=== PATIENT | female | born 1945 | race Caucasian/White ===

== ENCOUNTER → 2017-04-06 | Outpatient (REF) ==
[~2017-04-06] MED LIST: RT ADVAIR 228 DISKUS IH; ZOCOR 40MG40 MG PO
== END ==
LOC: ZLAB.WCH 14:19
DX: Z01.89 Encounter for other specified special examinations (principal)

== ENCOUNTER → 2018-04-19 | Outpatient (CLI) | payer MEDICARE, BC ==
[~2018-04-19] MED LIST changes: +D3-5050000 IU PO; +VOLTAREN 75 DR75 MG PO
== END ==
LOC: COL.RAD 09:04
DX: M89.9 Disorder of bone, unspecified (principal); R91.8 Other nonspecific abnormal finding of lung field
CPT/HCPCS: A9503

== ENCOUNTER → 2018-09-03 | Outpatient (CLI) | payer MEDICARE, BC ==
[~2018-09-03] MED LIST changes: +DECADRON 4MG TAB4 MG PO; +FOLIC ACID 11 MG/TA1 PO
== END ==
LOC: COL.LAB 11:03
DX: C34.32 Malignant neoplasm of lower lobe, left bronchus or lung (principal)

== ENCOUNTER 2018-09-04 12:54 | Outpatient (RCR) | payer MEDICARE, BC ==
[2018-09-04] VITALS (10 sets, daily range): BP systolic 110–137; BP diastolic 48–75; PULSE 66–82; TEMP 97.1–98.9
[~2018-09-04 12:54] MED LIST changes: -DECADRON 4MG TAB4 MG PO; -FOLIC ACID 11 MG/TA1 PO
[2018-09-04] MEDS ORDERED: FOLIC ACID 11 MG/TA1 PO (13:42)
[2018-09-04] MEDS ORDERED: DECADRON 4MG TAB4 MG PO (13:44)
== END 2018-09-04 18:20 | disposition home or self-care (01) ==
LOC: EUO 12:54
DX: C34.32 Malignant neoplasm of lower lobe, left bronchus or lung (principal); C79.51 Secondary malignant neoplasm of bone
CPT/HCPCS: J1644; J7050; P9040

== ENCOUNTER → 2018-12-18 | Outpatient (CLI) | payer MEDICARE, BC ==
[~2018-12-18] MED LIST changes: +DECADRON 4MG TAB4 MG PO; +FOLIC ACID 11 MG/TA1 PO
== END ==
LOC: COL.RAD 08:23
DX: C34.32 Malignant neoplasm of lower lobe, left bronchus or lung (principal)
CPT/HCPCS: Q9967

== ENCOUNTER 2019-11-22 16:14 | Outpatient (RCR) | payer MEDICARE, BC ==
[2019-11-22] VITALS (10 sets, daily range): BP systolic 96–117; BP diastolic 54–76; PULSE 63–103; TEMP 97.8–98.2
[2019-11-22] MEDS ORDERED: ROXICODONE 55 MG/TAB PO (17:14)
[2019-11-22] MEDS ORDERED: TESSALON P100 MG/CAP PO (17:16)
--- NOTE | 2019-11-22 22:50 | NUR ---
PT YUDI CATH DCd AFTER 10ML OF NS AND 5ML OF HEPARIN FLUSHED IN IT. PT TOLERATED WELL. PT ESCORTED OUT VIA WC AND WENT HOME WITH GRANDDAUGHTER, LUIS BY PRIVATE VEHICLE.
== END 2019-11-22 22:50 | disposition home or self-care (01) ==
LOC: EUO 16:14
DX: C34.32 Malignant neoplasm of lower lobe, left bronchus or lung (principal)
CPT/HCPCS: J7050; P9016

== ENCOUNTER → 2019-12-19 | Outpatient (CLI) | payer MEDICARE, BC ==
[~2019-12-19] MED LIST changes: +ROXICODONE 55 MG/TAB PO; +TESSALON P100 MG/CAP PO
== END ==
LOC: COL.RAD 12-17 11:00
DX: C34.32 Malignant neoplasm of lower lobe, left bronchus or lung (principal); J90 Pleural effusion, not elsewhere classified; J18.1 Lobar pneumonia, unspecified organism; R91.8 Other nonspecific abnormal finding of lung field
CPT/HCPCS: Q9967

== ENCOUNTER → 2019-12-27 | Outpatient (CLI) | payer MEDICARE, BC ==
[~2019-12-27] VITALS: Ht 157.5 cm; Wt 48.2 kg
[2019-12-27 13:17] VITALS: BP 148/80; PULSE 116
[2019-12-27 14:45] VITALS: BP 121/68; PULSE 107
--- NOTE | 2019-12-27 14:45 | NUR ---
Dr Greenwood removed 800 mls of yellow drainage from left lung. Bandaid to left side of back clean dry and intact.
[2019-12-27 15:27] LABS: PLEURAL FLUID RBC 0 /mm3 (0-0); PLEURAL FLUID WBC 158 /mm3
[2019-12-27 15:39] LABS: PLEURAL FLUID APPEARANCE CLEAR; PLEURAL FLUID COLOR YELLOW
[2019-12-27 15:51] LABS: TOTAL PROTEIN,PLEURAL FLUID 4.3 gm/dL
== END ==
LOC: COL.RAD 13:01
PROVIDERS: Internal Medicine
DX: C34.32 Malignant neoplasm of lower lobe, left bronchus or lung (principal); J90 Pleural effusion, not elsewhere classified
CPT/HCPCS: 19804

== ENCOUNTER 2020-01-28 09:26 | Observation (INO) | payer MEDICARE, BC ==
[~2020-01-28] VITALS: Ht 157.5 cm; Wt 49.1 kg
[2020-01-28 09:54] LABS: BASO # 0.1 (0.0-0.2); BASO % 0.8 % (0.0-2.0); EOS % 0.2 % (0-4.0); GRAN # 6.4 (1.4-6.5); HEMATOCRIT 38.3 % (37.0-47.0); HEMOGLOBIN 12.2 g/dl (12.5-16.0); LYMPH # 0.9 (1.2-3.4); LYMPH % 10.6 % (20.0-51.0); MEAN CELL VOLUME 104 fl (80.0-100.0); MEAN CORPUSCULAR HEMOGLOBIN 33 pg (27.0-31.0); MEAN CORPUSCULAR HGB CONC 32 g/dl (33.0-37.0); MONO % 11.9 % (1.7-9.3); PLATELET COUNT 373 K/mm3 (130-400); RED BLOOD COUNT 3.67 M/mm3 (4.10-5.30); REDCELL DISTRIBUTION WIDTH-CV 18.1 % (11.5-14.5)
[2020-01-28 10:44] LABS: INR 1.1 (0.8-3.0); PROTHROMBIN TIME 11.8 SECONDS (9.7-12.8)
[2020-01-28 10:47] LABS: COLLECTION METHOD IN
[2020-01-28 10:55] LABS: ALBUMIN 3.2 gm/dL (3.5-5.0); BILIRUBIN,TOTAL 0.5 mg/dL (0.0-1.0); CALCIUM 8.7 mg/dL (8.4-10.2); CREATININE, serum 0.97 (0.52-1.25); POTASSIUM 4.7 mmol/L (3.4-5.0); TOTAL PROTEIN 6.8 gm/dL (6.4-8.2)
[2020-01-28 11:01] LABS: MUCOUS Present /lpf; PH 6 (5-8); SQUAMOUS EPITHELIAL None Seen /hpf; URINE APPEARANCE Clear; URINE BACTERIA None Seen /hpf; URINE BILIRUBIN Negative (NEGATIVE); URINE BLOOD Negative (NEGATIVE); URINE COLOR Yellow; URINE GLUCOSE Negative (NEGATIVE); URINE KETONE Negative (NEGATIVE); URINE LEUKOCYTE ESTERASE Negative (NEGATIVE); URINE NITRATE Negative (NEGATIVE); URINE PROTEIN(semi-quant) Negative (NEGATIVE); URINE RBC 0-2 /hpf; URINE UROBILINOGEN Negative (NEGATIVE)
--- NOTE | 2020-01-28 12:50 | NUR ---
arrived on unit per WC, assisted into bed, marshall cath patent draining clear yellow urine, provide call light
[2020-01-28 13:02] VITALS: BP 145/72; PULSE 110; TEMP 98.6
--- NOTE | 2020-01-28 13:54 | NUR ---
awake resting in bed, explained she is NPO and verbalizes understanding, is alert and oriented, although she at first thought she was in [place], then remembered she was in [place],
[2020-01-28] MEDS ORDERED: MAGIC MOUTH PO (14:34)
--- NOTE | 2020-01-28 14:53 | NUR ---
I met briefly with patient today after she arrived in [facility]. She has some confusion about where she is-[place] vs [place]. She has a son that lives in [place] with his and Dr Quezada is her physician. She lives in [place] with her son Ty. She reports having a son who and that she recently lost her but does not remember when, "recently". She has been getting a 2nd line chemotherapy: TAXOTERE AND CYRAMZA for her lung cancer with her last dose being 01/06/2020 per office records. Strength in her arms and legs appears good but she does reports that her memory has been affected. She also has a daughter who lives in [place] but had cancelled a trip here recently pt believes. Pt has NSCLC stage Bong with mets to T8 and multiple postive lymph nodes notes. She has pleural effusions that it appears have been drained monthly for the last few months and probably is in need of another thoracentesis. She doesn't remember what made her realize that things were not right this morning--she thinks maybe her son Ty would know. Ty's phone number is [phone] and her granddaughter Radha can be reached at [phone]. Pt denies further needs at this time and I will plan on meeting with her again tomorrow.
--- NOTE | 2020-01-28 15:00 | NUR ---
is very sleepy now, speech is slurred and she is hard to understand, when instructed to squeeze with upper extremities was unablt to squeeze right side or lift right arm, is able to move right leg, does have right sided facial drooping now, tries to answer questions but is forgetful and then cannot answer questions, this is different than at 1400, Citlaly CHANG notified of the change and that she failed nursing dysphagia screen, speech therapy notified and will eval on Wed
[2020-01-28] MEDS ORDERED: RT ADVAIR 228 DISKUS IH (15:38)
[2020-01-28] MEDS ORDERED: LIORESAL 1010 MG/TAB PO (15:40)
[2020-01-28] MEDS ORDERED: D3-5050000 IU PO (15:40)
[2020-01-28] MEDS ORDERED: ZOCOR 40MG40 MG PO (15:41)
[2020-01-28] MEDS ORDERED: FLONASE NASAL S16 GM NS (15:41)
[2020-01-28 16:01] VITALS: BP 126/68; PULSE 105; TEMP 98.5
--- NOTE | 2020-01-28 16:02 | NUR ---
I spoke with son Ty by phone earlier about his mother's code status and that fact she does not have a DPOA-HC or Living Will. He is requesting that we keep her comfortable because he believes that she is dying. He requested that family be allowed to visit her. I explained that only one designated family member could visit with prior authorization and that I would begin working on that and would let him know if it was approved. I spoke with Citlaly CHANG and with Leona Thurston RN who both supported and authorized a single visitor. Dr White and Citlaly will try to meet with visitor patrice if they can get here by 173. When I called Ty back, I got his daughter Radha who reports that he is very upset and has been drinking. Granddaughter Radha has Ty's phone and did report that she would be able to come and that was what Ty had told her to do. I notified Dr White/Citlaly, primary nurse Vani Burton RN and the ER entrance that Radha will be coming in for Svetlana Ramsay today and entered her name on the approved visitor list at desk.
--- NOTE | 2020-01-28 16:45 | NUR ---
This patient was admitted to the medical floor today. A pallative care consult was ordered. Linette Galindo, Pallative care nurse informed ZAIDA that the patient has declined and does not have a DPOA-HC. The patient has three children, Ty, Pérez and Glory. Linette reports she has spoken to the patient's granddaughter regarding the patient's condition and to locate family. The granddaughter reports that Ty #[phone] lives with the patient and is currently intoxicated. She states that she has his phone at this time. The patient's granddaughter plans to come up to the hospital this afternoon to see the patient and to speak to the doctors about the patient's current condition and prognosis. ZAIDA was able to locate and contact the patient's [id number]-djt, Lennie (ph#[phone]). Lennie reports that she will notify her , Pérez, of his mother's hospitalization and that Ty should have Glory's phone number in his phone. Lennie reports that she will notify family of the patient's hospitalization. ZAIDA to continue to follow.
--- NOTE | 2020-01-28 16:48 | NUR ---
Pt does not have Living will or DPOA-HC per family and neither of her physicians has any record of this. Son Ty has stated he would want his mother to be a DNR and placed on comfort care but without advanced directives, we must make every attempt to contact her other two living children and get their support of this or another goal of care. I have advised Citlaly and she will talk with Dr White. Granddaughter is not here yet. Vani QUESADA has been made aware of this issue as well.tail worker Missy CASTRO has been a big help in finding the Tiburcio son's contact information and we will continue to work toward resolution. Pt status at this time hashas continued to decline per Vani QUESADA.
--- NOTE | 2020-01-28 17:21 | NUR ---
vee graham and in to see patient with Dr White, and Dr Yanez also in seeing patinet, Dr White notified of her blood sugar
--- NOTE | 2020-01-28 18:50 | NUR ---
bedside shift report given to DIPAK Poe
--- NOTE | 2020-01-28 20:12 | NUR ---
Assessment completed. Pt resting in bed, alert and oriented at this time. Able to follow commands and answer questions appropriately. Lifts and holds all extremities. Right hand audio specialist moderate strength, left hand audio specialist strongs. Pupils equal and reactive. Pt denies pain or other needs at this time. Pacheco catheter in place, urine pale yellow and clear. IV to left AC intact with NS running at 75 ml/hr. INT to right forearm intact, flushes easily. Will continue hourly stroke scales and neuro checks every 2 hours.
[2020-01-28 23:33] VITALS: BP 129/67; PULSE 104; TEMP 97.5
[2020-01-29 04:17] VITALS: BP 137/69; PULSE 106; TEMP 97.6
--- NOTE | 2020-01-29 06:23 | NUR ---
Pt has rested in bed throughout shift without complaint. Hourly stroke scales done and neuro checks done every 2 hours. Pt has been alert or easily arousable. At times, pt was oriented x4, sometimes disoriented to place, time, or situation. Blood glucose was 59 at 0600. D50W 12.5 grams administered, continuous fluids switched to D5NS at 75 ml/hr as ordered.
[2020-01-29 07:07] LABS: BASO # 0.1 (0.0-0.2); BASO % 0.9 % (0.0-2.0); EOS % 0.5 % (0-4.0); GRAN # 6.3 (1.4-6.5); HEMOGLOBIN 10.8 g/dl (12.5-16.0); LYMPH # 0.7 (1.2-3.4); LYMPH % 8.9 % (20.0-51.0); MEAN CELL VOLUME 106 fl (80.0-100.0); MEAN CORPUSCULAR HEMOGLOBIN 33 pg (27.0-31.0); MEAN CORPUSCULAR HGB CONC 31 g/dl (33.0-37.0); MEAN PLATELET VOLUME 9.4 fl (7.4-10.4); MONO # 0.6 (0.1-0.6); MONO % 7.9 % (1.7-9.3); PLATELET COUNT 406 K/mm3 (130-400); RED BLOOD COUNT 3.26 M/mm3 (4.10-5.30)
[2020-01-29 07:10] LABS: HEMATOCRIT 34.7 % (37.0-47.0)
[2020-01-29 07:13] LABS: CALCIUM 8.8 mg/dL (8.4-10.2); CHOLESTEROL RISK RATIO 4.9; CREATININE, serum 0.9 (0.52-1.25)
[2020-01-29 07:18] VITALS: BP 141/67; PULSE 107; TEMP 97.3
--- NOTE | 2020-01-29 08:05 | NUR ---
Assessment complete. Pt resting in bed, alert and oriented to self and year. Right lower ext slightly weaker than left when raising off bed and pt reports it is harder to lift the right leg. Hand human performance technologist equal bilat. O2 at 3 L/min via NC. Pt denies pain at this time. IVF's infusing per orders through left AC site without s/s of complications. Saline lock IV to right forearm without s/s of complications. Pt requesting water, reminded of not being able to have anything by mouth until seen by speech therapy. No further needs reported. Call light in reach.
--- NOTE | 2020-01-29 10:00 | NUR ---
Initial visit; Patient thanked College Tutor for stopping though declined spiritual care at this time.
--- NOTE | 2020-01-29 10:44 | NUR ---
I have spoken with Ty and Pérez Ramsay and Glory all by phone and all three children have verbalized desire for their mother to be kept comfortable and that her code status be DNR. Hospice care vs [facility] private pay support in the home were presented and family will now discuss what their wishes would be. Ty does not feel comfortable providing personal care for his mother and her needs at this point will be increased. Pérez # [phone] and Glory is in [place] # [phone]. Gaby HEADLEY was present for call with Ty Ramsay as well.
[2020-01-29 11:37] VITALS: BP 127/66; PULSE 110; TEMP 97.7
--- NOTE | 2020-01-29 11:59 | NUR ---
Gaby HEADLEY and I met with Svetlana to talk about discharge plans. Pt is aware that her family has requested a focus on comfort for her care and she is supportive of a DNR status. We did begin to discuss going to [facility] for car at discharge as family is concerned that personal care will be very difficult for Ty to provide. Pt is aware that going on hospice will mean that she will not have anymore chemotherapy. She verbalized agreement about going to hospice house but then asked "When can I go home?". Going home may be an option for her care in the future if she is able to regain more function. We are not sure what she may regain and what skills are not going to return. Pt was accepting of this.
--- NOTE | 2020-01-29 15:56 | NUR ---
Pt asked me earlier today where her rings were. There is no record of them being worn by here at time of admission. I did speak to her son Ty who reports that he doubts she was wearing them as she has lost a lot of weight and he didn't think that they would stay on any more. Pt seemed reassured that we had spoken with her son and reports she would find them later on when she gets home or Ty could look for them.
--- NOTE | 2020-01-29 16:30 | NUR ---
Patient's children can be reached at Ty (ph#[phone]), Pérez (ph#[phone]), and Glory (ph#[phone]). ZAIDA and Linette, Palliative RN contacted patient's son, Ty to discuss goals of care and discharge planning. Ty advised that he cannot care for patient at home at this time. ZAIDA reviewed options including [facility] and Hospice at [facility]. Ty would like to speak with his siblings about this. Ty called ZAIDA back and states their preference would be [facility] as they would be able to visit and patient's dog could visit. ZAIDA and Linette met with patient to discuss discharge planning. Patient is agreeable with discharge to [facility] but hopes that one day she can return home. ZAIDA contacted [place] at [facility] and faxed referral. [place] followed up with ZAIDA and advised that she spoke with Ty who has some concerns about affording room and board costs. Georgia advised they can do a sliding fee scale but that patient's family will be collaborating about finances. ZAIDA requested COVID test to be ordered. ZAIDA will continue to follow.
[2020-01-29 16:38] VITALS: BP 125/65; PULSE 105; TEMP 98.5
[2020-01-29 18:10] LABS: FOLATE (FOLIC ACID) 17.6 ng/mL (7.0-31.4)
--- NOTE | 2020-01-29 19:11 | NUR ---
Report received from DIPAK Hahn. Pt sitting up in bed eating dinner at this time. Denies needs, will continue to monitor.
--- NOTE | 2020-01-29 19:34 | NUR ---
Pt resting in bed, just finished eating dinner. Nasal cannula on delivering O2 at 3 L/min. Pt oriented to person, place, and situation, disoriented to time. Hand spice room worker equal, moderate muscle strength. Denies pain. No other abnormal findings noted. Will continue to monitor.
[2020-01-29 19:36] VITALS: BP 121/61; PULSE 114; TEMP 98.2
[2020-01-30 00:31] VITALS: BP 128/72; PULSE 98; TEMP 98.3
[2020-01-30 04:51] VITALS: BP 136/62; PULSE 96; TEMP 98.1
--- NOTE | 2020-01-30 05:59 | NUR ---
Pt sleeping in bed throughout shift. Occasionally attempts to get out of bed stating she needs to go home or calls out for family members. Has been easily redirected and lays back down to sleep.
--- NOTE | 2020-01-30 09:30 | NUR ---
I recieved call fron daughter Glory this morning asking about her mother and also reporting support for her going to the [facility]. I will call her back later this morning with an update and to let her talk with her mother. I also spoke with Radha, granddaughter, who reports that her father had trouble understanding the hospice house cost and sliding scale costs but that once she had talked with hospice and then her father, that he was very much in favor of Svetlana going to the hospice house. They are aware that covid testing is being done and that transfer would be dependent on that result.
--- NOTE | 2020-01-30 10:20 | NUR ---
Rounding with Dr. White and team-tried to reach son Ty and no one answered. Called daughter, Glory, and included her in discussions with pt. Reviewed pt status, Hospice plans, Covid 19 continues to be pended. When Covid is negative pt will be discharged to Hospice. Answered all questions of daughter/pt.
[2020-01-30] MEDS ORDERED: TYLENOL 325MG325 MG PO (10:27)
[2020-01-30] MEDS ORDERED: ATROPINE 2 ML2 ML SL (10:28)
[2020-01-30] MEDS ORDERED: SYSTANE 0.3-0.1 EACH OP (10:29)
[2020-01-30] MEDS ORDERED: ZOFRAN 4MG T4 MG/TAB PO (10:30)
[2020-01-30] MEDS ORDERED: MELATIN 3 MG-11 TAB PO (10:31)
[2020-01-30] MEDS ORDERED: ROXANOL 20MG20 MG/ML SL (10:31)
[2020-01-30] MEDS ORDERED: ATIVAN 1MG T1 MG/TAB PO (10:31)
--- NOTE | 2020-01-30 11:01 | NUR ---
Pt assessment completed and charted. Pt on comfort cares, PRN VS monitoring. Pt denies pain, doesn't appear to be in distress. Pt on 4L NC, breathing even and unlabored, occasional LEGGETT. BS activeX4. Heart RRR. Pulses strong bilaterally. Pt denies chest pain, dizziness, N/V/D. NO further needs expressed. This nurse and Linette Galindo talked w/ granddaughter this morning, updated on visitor policy.
[2020-01-30 12:00] VITALS: BP 133/66; PULSE 100; TEMP 97.5
--- NOTE | 2020-01-30 16:24 | NUR ---
Patient's COVID test still pending. SW contacted patient's son, Ty who reports after talking with his daughter, Radha they are all in agreement with discharge to [facility] and will be able to make financial arrangements for room and board. ZAIDA collaborated with DIPAK Sue who spoke with Radha, who confirms this. ZAIDA spoke with Doni at [facility] who reports they already have one admission tomorrow, but when patient's results get back they will do their best to admit her. SW will continue to follow.
[2020-01-30 19:16] VITALS: BP 136/67; PULSE 105; TEMP 97.9
--- NOTE | 2020-01-30 20:00 | NUR ---
PT IN BED WITH HOB ELEVATED AT 30 DEGREE ANGLE. PT ALERT AND HAS O2 ON. NO C/O PAIN OR DISCOMFORT. PT DOES TRY TO GET UP WITHOUT ASKING FOR ASSISTANCE. PT HAS CALL LIGHT WITHIN REACH AND BED ALARM ON.
--- NOTE | 2020-01-31 06:10 | NUR ---
PT RESTED/SLEPT IN BED WITH HOB AT 30 DEGREE ANGLE. PT HAD PULLED OUT IV IN LEFT FOREARM AND TOOK OFF STAT-LOCK FOR TRINIDAD CATHETER. PT DENIES PAIN OR DISCOMFORT AND NO OTHER NEEDS. CALL LIGHT WITHIN REACH AND BED ALARM ON.
--- NOTE | 2020-01-31 10:14 | NUR ---
Pt assessment completed and charted. Pt laying in bed, watching tv. Alert, partially oriented, occasionally forgetful. Pt on 4L NC, breathing is even and unlabored. Pt has productive cough, coughs w/ deep breaths. UL bilaterally coarse, LL bilaterally diminished. Pulses strong bilaterally, BS active. Pt tolerating PO foods/liquids well. Pacheco catheter in place draining clear yellow urine. Cath care provided. pt showered this morning w/ BOOKKEEPING MACHINE MECHANIC. LAC INT IV flushes w/o difficulty. Pt denies pain or needs at this time. Call light within reach and bed alarm on.
--- NOTE | 2020-01-31 12:03 | NUR ---
Advised daughter Glory that her mother will be transferred to [facility] tomorrow at 1100. She reports she will be coming to [place] probably next week to be with her mother. Support provided along with information given per daughter's questions about her mother's status.
[2020-01-31 12:14] VITALS: BP 121/84; PULSE 106; TEMP 98.1
--- NOTE | 2020-01-31 14:48 | NUR ---
Patient's COVID test returned negative. ZAIDA contacted Doni at [facility] and was advised that they cannot do an admission today, but could take tomorrow. ZAIDA and Doni agreed on 1100 pick out hand time tomorrow morning. ZAIDA provided this update to Hospitalist and RN. ZAIDA contacted [facility] and set transport time for 1100. ZAIDA placed EMS forms on patient's chart to be signed. Medications will need to be faxed to [facility] at fax#[phone]. Discharge orders will need to be faxed to fax#[phone]. ZAIDA provided update to patient's son, Ty who is in agreement with discharge plan. ZAIDA also provided this update to Linette, Palliative RN. ZAIDA will continue to follow.
--- NOTE | 2020-01-31 14:55 | NUR ---
Pt assisted to bathroom, 1 assist with walker, unsteady gait. Pt partially oriented still, a little forgetful, needs some reorientation.
[2020-01-31 19:04] VITALS: BP 136/70; PULSE 103; TEMP 98.2
--- NOTE | 2020-02-01 05:44 | NUR ---
PATIENT HAD AN UNEVENTFUL NIGHT. PATIENT HAD SOME INTERMITTENT COUGHING BUT RESTED WELL IN BED. HER INT WAS REWRAPED. PATIENT WAS UP TO THE BATHROOM ONCE FOR THIS NURSE. TRINIDAD IN PLACE AND DRAINING ACCURATELY. PATIENT IS ALERT BUT ONLY PARTIALLY ORIENTATED. PATIENT DENIED ANY PAIN. WILL CONTINUE TO MONITOR AND WILL PASS OFF TO DAY SHIFT.
[2020-02-01 07:53] VITALS: BP 139/72; PULSE 95; TEMP 98.2
--- NOTE | 2020-02-01 08:20 | NUR ---
Patient in bed resting. Alert and oriented to self, states she knows she is in a hospital but does not know which hospital she is in. Pacheco to dependent drainge with clear yellow urine in bag. See assessment. Denies pain or further needs at this time.
--- NOTE | 2020-02-01 09:30 | NUR ---
Transfer paperwork completed and signed by myself and Dr. White. Phone consent obtained from Ty, son and witnessed by myself and ALESSANDRA Leonard. [facility] to transfer patient to hospice house at 11 AM.
[2020-02-01 10:39] VITALS: BP 139/72; PULSE 95; TEMP 98.2
--- NOTE | 2020-02-01 11:00 | NUR ---
Patient up to restroom with stand by assist and walker. Denies pain or further needs at this time.
--- NOTE | 2020-02-01 11:18 | NUR ---
Assisted patient to dress, INT to left AC discontinued. Patient transfered to hospice via EMS. Report called to Madeline QUESADA at [facility].
== END 2020-02-01 11:18 | disposition hospice, inpatient (51) ==
LOC: COL.ER 09:26 → MEDICAL 11:13
PROVIDERS: Emergency Medicine; Physician Assistant; ADMIT Family Medicine
DX: I63.9 Cerebral infarction, unspecified (principal); E16.2 Hypoglycemia, unspecified; C34.90 Malignant neoplasm of unspecified part of unspecified bronchus or lung; J91.8 Pleural effusion in other conditions classified elsewhere; C79.51 Secondary malignant neoplasm of bone; D63.0 Anemia in neoplastic disease; Z66 Do not resuscitate; Z20.828 Contact with and (suspected) exposure to other viral communicable diseases; J43.9 Emphysema, unspecified; J45.909 Unspecified asthma, uncomplicated; I45.2 Bifascicular block; R00.0 Tachycardia, unspecified; E78.5 Hyperlipidemia, unspecified; M19.90 Unspecified osteoarthritis, unspecified site; M85.80 Other specified disorders of bone density and structure, unspecified site; Z79.899 Other long term (current) drug therapy; Z87.891 Personal history of nicotine dependence; Z92.21 Personal history of antineoplastic chemotherapy; Z80.3 Family history of malignant neoplasm of breast; Z88.1 Allergy status to other antibiotic agents
CPT/HCPCS: 99222-AI; 99232-AI; 99233-AI; 99239; G0378; J1650; J1940; J7030; J7042; Q9967